=== PATIENT | male | born 1940 | race Caucasian/White ===

== ENCOUNTER 2021-11-24 17:56 | Inpatient (IN) | payer MEDICARE, OTHER ==
[~2021-11-24] VITALS: Ht 172.7 cm; Wt 96.3 kg
[~2021-11-24 17:56] MED LIST: CLOP75TA70 PO; COEN100C37 PO; FLUT50SP13; GLUCCAP3 PO; LOSA25TA38 PO; TAMS0.4C36 PO
[2021-11-24] MEDS ORDERED: LORazepam 2MG/ML-1ML VIAL IV ONE ×2 (20:00→22:45)
[2021-11-24 20:02] LABS: Basophils # (auto) 0.2 10 ^3/uL (0-0.2); Basophils % (auto) 2.1 % (0.0-2.0); Eosinophils # (auto) 0.1 10 ^3/uL (0-0.8); Eosinophils % (auto) 0.8 % (0.0-7.0); Hematocrit 43.6 % (41.0-53.0); Hemoglobin 14.6 g/dL (13.5-17.5); Lymphocytes # (auto) 1.2 10 ^3/uL (0.4-5.4); Lymphocytes % (auto) 13.1 % (10.0-50.0); Mean Corpuscular Hemoglobin 28.7 pg (28.0-32.0); Mean Corpuscular Hgb Conc. 33.5 g/dL (32.0-36.0); Mean Corpuscular Volume 85.8 fL (80.0-100.0); Monocytes # (auto) 0.7 10 ^3/uL (0-1.3); Monocytes % (auto) 7.7 % (0.0-12.0); Neutrophils # (auto) 6.7 10 ^3/uL (1.6-8.6); Neutrophils % (auto) 76.3 % (37.0-80.0); Red Blood Cells 5.08 10^6/uL (4.5-5.90); Red Cell Distribution Width 14.2 % (11.8-14.3); White Blood Cell 8.8 10^3/uL (4.4-10.8)
[2021-11-24 20:24] LABS: Blood Urea Nitrogen 20 mg/dL (7-18); Calcium 8.7 mg/dL (8.5-10.1); Chloride 112 mmol/L (98-107); Potassium 4.1 mmol/L (3.5-5.1); Sodium 140 mmol/L (136-145)
[2021-11-24 20:29] LABS: Alanine Aminotransferase 48 U/L (16-61); Albumin 3.5 g/dL (3.4-5.0); Alkaline Phosphatase 91 U/L (45-117); Anion Gap 7 (5-15); Aspartate Aminotransferase 29 U/L (15-37); BUN/Creatinine Ratio 20.6; Bilirubin, Total 0.7 mg/dL (0.2-1.0); Blood Alcohol < 3.0 mg/dL (0-5); Carbon Dioxide 21 mmol/L (21-32); GFR African American 96 mL/min; GFR Non-African American 79 mL/min; Glucose 139 mg/dL (74-106); Magnesium 2.4 mg/dL (1.6-2.6); Total Protein 6.4 g/dL (6.4-8.2)
[2021-11-24] MEDS ORDERED: NITROGLYCERIN 0.4 MG SL TAB SL PRN (21:30)
[2021-11-24] MEDS ORDERED: MORPHINE SULFATE INJECTION 2 MG/ML SYRG IV PRN (21:30)
[2021-11-24] MEDS ORDERED: dilTIAZem 25 MG/5 ML VIAL IV ONE (21:30)
[2021-11-24] MEDS ORDERED: ONDANSETRON HCL 4 MG/2 ML VIAL IV PRN (21:30)
[2021-11-24 21:35] LABS: Urine Bacteria FEW /hpf (None Seen); Urine Blood 3+ /uL (Negative); Urine Specific Gravity 1.025 (1.001-1.035); Urine WBC 30 /hpf (0 - 3)
[2021-11-24] MEDS: ENOXAPARIN SOD 40 MG/0.4 ML SYRINGE SC SCH (21:35)
[2021-11-24 21:46] LABS: Alcohol, Urine < 3.0 mg/dL (0-10); Amphetamine Screen, Urine NEGATIVE (NEGATIVE); Barbiturate Scree,Urine NEGATIVE (NEGATIVE); Benzodiazephine Screen, Urine NEGATIVE (NEGATIVE); Cannabinoid Screen, Urine NEGATIVE (NEGATIVE); Cocaine Screen, Urine NEGATIVE (NEGATIVE); Opiate Scree,Urine NEGATIVE (NEGATIVE); Phencyclidine Screen, Urine NEGATIVE (NEGATIVE)
[2021-11-24] MEDS ORDERED: cefTRIAXone 1GM/50ML D5W 50 ML IV ONE (23:00)
[2021-11-24] MEDS: TAMSULOSIN HYDROCHLORIDE 0.4 MG CAP PO SCH ×2 (23:34→23:42)
[2021-11-24] MEDS: PANTOPRAZOLE 40 MG TAB PO SCH ×2 (23:34→23:41)
[2021-11-24] MEDS: CLOPIDOGREL BISULFATE 75 MG TAB PO SCH ×2 (23:34→23:41)
[2021-11-25 00:21] VITALS: BP 96/68
[2021-11-25 03:50] VITALS: BP 141/118
[2021-11-25] MEDS ORDERED: dilTIAZem 25 MG/5 ML VIAL IV ONE (04:00)
[2021-11-25 05:07] LABS: Basophils # (auto) 0 10 ^3/uL (0-0.2); Basophils % (auto) 0.2 % (0.0-2.0); Eosinophils # (auto) 0 10 ^3/uL (0-0.8); Eosinophils % (auto) 0.1 % (0.0-7.0); Hematocrit 40.8 % (41.0-53.0); Hemoglobin 14.3 g/dL (13.5-17.5); Lymphocytes # (auto) 1.4 10 ^3/uL (0.4-5.4); Lymphocytes % (auto) 13.6 % (10.0-50.0); Mean Corpuscular Hemoglobin 29.8 pg (28.0-32.0); Mean Corpuscular Volume 85.2 fL (80.0-100.0); Monocytes # (auto) 0.9 10 ^3/uL (0-1.3); Monocytes % (auto) 8.6 % (0.0-12.0); Neutrophils # (auto) 7.8 10 ^3/uL (1.6-8.6); Neutrophils % (auto) 77.5 % (37.0-80.0); Red Blood Cells 4.79 10^6/uL (4.5-5.90); Red Cell Distribution Width 14.3 % (11.8-14.3); White Blood Cell 10.1 10^3/uL (4.4-10.8)
[2021-11-25 05:21] LABS: Albumin 3.6 g/dL (3.4-5.0); BUN/Creatinine Ratio 18.1; Potassium 4.4 mmol/L (3.5-5.1)
[2021-11-25 05:26] LABS: Bilirubin, Total 0.9 mg/dL (0.2-1.0); Total Protein 6.5 g/dL (6.4-8.2)
[2021-11-25] MEDS ORDERED: DONE5TAB80 PO (07:07)
[2021-11-25] MEDS ORDERED: PHEN100C PO (07:07)
[2021-11-25] MEDS ORDERED: ASPI1TAB20 PO (07:07)
[2021-11-25 08:00] VITALS: BP 117/80
[2021-11-25 09:00] VITALS: BP 117/80
[2021-11-25] MEDS: LOSARTAN POTASSIUM 25 MG TAB PO SCH (10:00)
[2021-11-25] MEDS: CLOPIDOGREL BISULFATE 75 MG TAB PO SCH (10:00)
[2021-11-25] MEDS ORDERED: PANTOPRAZOLE 40 MG TAB PO SCH (10:00)
[2021-11-25] MEDS ORDERED: HALOPERIDOL LACTATE 5 MG/ML INJ VIAL IM PRN (10:15)
[2021-11-25] MEDS ORDERED: VANCOMYCIN PER PHARMACY 0 MG IV SCH (12:00)
[2021-11-25] MEDS: cefTRIAXone 1GM/50ML D5W 50 ML IV SCH (12:00)
[2021-11-25] MEDS: ENOXAPARIN SOD 40 MG/0.4 ML SYRINGE SC SCH (12:39)
[2021-11-25] MEDS: LORazepam 2MG/ML-1ML VIAL IV PRN (12:54)
[2021-11-25 14:59] LABS: Folate (Folic Acid) 11.59 ng/mL (5.38-24)
[2021-11-25] MEDS: VANCOMYCIN 1GM/250ML 250 ML IV SCH (15:41)
[2021-11-25] MEDS ORDERED: LORazepam 2MG/ML-1ML VIAL IV ONE (16:15)
[2021-11-25] MEDS: SODIUM CHLORIDE 0.9% 1,000 ML IV SCH (16:25)
[2021-11-25 17:00] VITALS: BP 119/82
[2021-11-25] MEDS: METOPROLOL TARTRATE 1MG/1ML-5ML VIAL IV PRN (17:18)
[2021-11-25] MEDS: TAMSULOSIN HYDROCHLORIDE 0.4 MG CAP PO SCH (17:51)
[2021-11-25 22:00] VITALS: BP 131/84
[2021-11-26] MEDS: SODIUM CHLORIDE 0.9% 1,000 ML IV SCH ×2 (02:00→18:00)
[2021-11-26] MEDS: VANCOMYCIN 1GM/250ML 250 ML IV SCH ×2 (02:09→14:27)
[2021-11-26] MEDS: LORazepam 2MG/ML-1ML VIAL IV PRN ×2 (02:14→14:39)
[2021-11-26] MEDS: METOPROLOL TARTRATE 1MG/1ML-5ML VIAL IV PRN ×2 (03:00→21:15)
[2021-11-26 04:34] VITALS: BP 144/111
[2021-11-26 06:50] LABS: BUN/Creatinine Ratio 24.6; Calcium 8.4 mg/dL (8.5-10.1); Potassium 4.1 mmol/L (3.5-5.1)
[2021-11-26 08:57] VITALS: BP 125/91
[2021-11-26] MEDS: LOSARTAN POTASSIUM 25 MG TAB PO SCH (09:02)
[2021-11-26] MEDS: cefTRIAXone 1GM/50ML D5W 50 ML IV SCH (09:02)
[2021-11-26] MEDS: ENOXAPARIN SOD 40 MG/0.4 ML SYRINGE SC SCH (09:02)
[2021-11-26] MEDS: CLOPIDOGREL BISULFATE 75 MG TAB PO SCH (09:02)
[2021-11-26] MEDS ORDERED: GLUCCAP3 PO (09:47)
[2021-11-26] MEDS ORDERED: LOSA-69 PO (09:47)
[2021-11-26] MEDS ORDERED: COEN100C37 PO (09:47)
[2021-11-26] MEDS ORDERED: PHENYTOIN IV DILANTIN 300 MG in SODIUM CHL 0.9% 50 ML IV SCH (11:24)
[2021-11-26] MEDS ORDERED: CYANOCOBALAMIN (B-12) 1000 MCG/1 ML VIAL IM ONE (11:45)
[2021-11-26 13:00] VITALS: BP 118/90
[2021-11-26 17:00] VITALS: BP 119/78
[2021-11-26] MEDS: TAMSULOSIN HYDROCHLORIDE 0.4 MG CAP PO SCH (18:00)
[2021-11-26 21:13] VITALS: BP 125/82
[2021-11-26] MEDS: PHENYTOIN IV DILANTIN 300 MG in SODIUM CHL 0.9% 50 ML IV SCH (22:00)
[2021-11-27] MEDS: VANCOMYCIN 1GM/250ML 250 ML IV SCH ×2 (02:19→15:55)
[2021-11-27 05:06] VITALS: BP 130/96
[2021-11-27 07:13] LABS: Calcium 8.7 mg/dL (8.5-10.1); Potassium 4.3 mmol/L (3.5-5.1)
[2021-11-27] MEDS: METOPROLOL TARTRATE 1MG/1ML-5ML VIAL IV PRN ×3 (07:16→22:59)
[2021-11-27 07:17] LABS: BUN/Creatinine Ratio 27.5
[2021-11-27 08:36] VITALS: BP 130/91
[2021-11-27] MEDS: PHENYTOIN IV DILANTIN 300 MG in SODIUM CHL 0.9% 50 ML IV SCH (08:53)
[2021-11-27] MEDS: CLOPIDOGREL BISULFATE 75 MG TAB PO SCH (10:00)
[2021-11-27] MEDS ORDERED: CYANOCOBALAMIN (B-12) 1000 MCG/1 ML VIAL IM SCH (10:00)
[2021-11-27] MEDS: LOSARTAN POTASSIUM 25 MG TAB PO SCH (10:00)
[2021-11-27] MEDS: SODIUM CHLORIDE 0.9% 1,000 ML IV SCH (10:35)
[2021-11-27] MEDS: cefTRIAXone 1GM/50ML D5W 50 ML IV SCH (10:36)
[2021-11-27] MEDS: ENOXAPARIN SOD 40 MG/0.4 ML SYRINGE SC SCH (10:37)
[2021-11-27 13:00] VITALS: BP 136/92
[2021-11-27] MEDS ORDERED: IOHEXOL 350 MG/ML 100ML IJ ONE (13:03)
[2021-11-27 16:50] VITALS: BP 143/80
[2021-11-27] MEDS: TAMSULOSIN HYDROCHLORIDE 0.4 MG CAP PO SCH (18:00)
[2021-11-27 22:00] VITALS: BP 126/80
[2021-11-27] MEDS: PHENYTOIN DILANTIN IV SCH (22:00)
[2021-11-27] MEDS: SODIUM CHL 0.9% IV SCH (22:00)
[2021-11-27] MEDS ORDERED: ATORVASTATIN 20 MG TAB PO SCH (22:00)
[2021-11-27 22:31] LABS: Cholesterol 160 mg/dL (< 200)
[2021-11-27 22:33] LABS: HDL Cholesterol 34 mg/dL (40-59); LDL Cholesterol 113 mg/dL (< 100); Triglycerides 81 mg/dL (< 150)
[2021-11-28 05:00] VITALS: BP 137/87
[2021-11-28] MEDS: PHENYTOIN DILANTIN IV SCH (06:09)
[2021-11-28] MEDS: SODIUM CHL 0.9% IV SCH (06:09)
[2021-11-28] MEDS: METOPROLOL TARTRATE 1MG/1ML-5ML VIAL IV PRN ×2 (06:11→10:56)
[2021-11-28 06:24] LABS: Calcium 8.7 mg/dL (8.5-10.1); Potassium 4.1 mmol/L (3.5-5.1)
[2021-11-28 06:27] LABS: BUN/Creatinine Ratio 28.7
[2021-11-28] MEDS: VANCOMYCIN 1GM/250ML 250 ML IV SCH (07:00)
[2021-11-28 09:00] VITALS: BP 113/91
[2021-11-28] MEDS: LOSARTAN POTASSIUM 25 MG TAB PO SCH (10:00)
[2021-11-28] MEDS: CLOPIDOGREL BISULFATE 75 MG TAB PO SCH (10:00)
[2021-11-28] MEDS: cefTRIAXone 1GM/50ML D5W 50 ML IV SCH (10:56)
[2021-11-28 12:58] VITALS: BP 113/85
[2021-11-28 15:34] VITALS: BP 113/85
== END 2021-11-28 16:35 | disposition hospice, home (50) | DRG 64 ==
LOC: EDBD 17:56 → EDUNIT# 17:56 → ER 17:56 → TELE 21:25 → TELE-CENTR 23:07
PROVIDERS: ADMIT Nurse Practitioner; ATTEND Internal Medicine
DX: I63.511 Cerebral infarction due to unspecified occlusion or stenosis of right middle cerebral artery (principal); G93.41 Metabolic encephalopathy; G81.91 Hemiplegia, unspecified affecting right dominant side; N30.00 Acute cystitis without hematuria; R06.3 Periodic breathing; D68.69 Other thrombophilia; I48.91 Unspecified atrial fibrillation; E11.42 Type 2 diabetes mellitus with diabetic polyneuropathy; F17.200 Nicotine dependence, unspecified, uncomplicated; G40.409 Other generalized epilepsy and epileptic syndromes, not intractable, without status epilepticus; Z96.659 Presence of unspecified artificial knee joint; Z20.822 Contact with and (suspected) exposure to COVID-19; F03.90 Unspecified dementia, unspecified severity, without behavioral disturbance, psychotic disturbance, mood disturbance, and anxiety; I10 Essential (primary) hypertension; Z79.02 Long term (current) use of antithrombotics/antiplatelets; Z79.899 Other long term (current) drug therapy; Z82.49 Family history of ischemic heart disease and other diseases of the circulatory system; Z86.73 Personal history of transient ischemic attack (TIA), and cerebral infarction without residual deficits; Z87.440 Personal history of urinary (tract) infections
CPT/HCPCS: 36415; 70450; 70496; 70498; 71045; 80048; 80053; 80061; 80185; 80202; 80307; 80320; 81001; 82607; 82746; 82962; 83036; 83605; 83735; 84443; 84484; 85025; 87086; 87088; 87186; 93005; 93306; 96374; 96375; 99291; G0378; J0696